=== PATIENT | male | born 2000 | race Caucasian/White ===

== ENCOUNTER 2023-03-03 11:05 | Emergency (ER) | payer MEDICAID ==
[~2023-03-03] VITALS: Ht 182.9 cm; Wt 80.0 kg
[2023-03-03 11:08] VITALS: BP 161/104; PULSE 114; RESP 16; TEMP 98.4; O2SAT 98
[2023-03-03] MEDS ORDERED: LORAZEPAM 2MG/ML CPJ IV NR (11:48)
[2023-03-03 12:47] LABS: BASOPHILS % 0.3 % (0.0-2.0); HEMATOCRIT. 47.6 % (42.0-52.0); HEMOGLOBIN. 16.3 g/dL (14.0-18.0); LYMPHOCYTES % 8.3 % (20.0-50.0); MEAN CORPUSCULAR HEMOGLOBIN 32.8 pg (28.0-32.0); MEAN CORPUSCULAR HGB CONC 34.3 g/dL (31.0-37.0); MEAN CORPUSCULAR VOLUME 95.6 fL (80.0-94.0); MEAN PLATELET VOLUME 9.4 fl (7.4-10.4); MONOCYTES % 5.4 % (2.0-8.0); PLATELET 250 x1000/uL (130-400); RED BLOOD CELL COUNT 4.98 mill/uL (4.7-6.1); RED CELL DISTRIBUTION WIDTH 13.2 % (11.6-14.6)
[2023-03-03 12:59] LABS: CHLORIDE 107 mEq/L (98-107); INDEX HEMOLYSI 1 (1-3); INDEX ICTERIC 1 (1-4); INDEX LIPEMIC 1 (1-3); POTASSIUM 4.2 mEq/L (3.5-5.1); SODIUM 139 mEq/L (136-145)
[2023-03-03 13:16] LABS: ACETAMINOPHEN <2 ug/mL ug/mL (10-30); ALANINE AMINOTRANSFERASE 19 IU/L (13-61); ALBUMIN 4.6 g/dL (3.4-5.0); ASPARTATE AMINOTRANSFERASE 20 IU/L (15-37); BILIRUBIN TOTAL 0.7 mg/dL (0.1-1.0); CALCIUM 9.4 mg/dL (8.5-10.1); CARBON DIOXIDE 26 mEq/L (21-32); ETHANOL BLOOD < 10 mg/dL (<10); PROTEIN TOTAL 9.5 g/dL (6.0-8.3); THYROID STIMULATING HORMONE 0.45 uIU/mL (0.36-3.74); UREA NITROGEN BLOOD 22 mg/dL (7-21)
[2023-03-03 13:22] LABS: GLUCOSE 96 mg/dL (70-105)
[2023-03-03 13:39] LABS: TROPONIN I HIGH SENSITIVITY 9 ng/L (<78)
[2023-03-03 16:23] LABS: TROPONIN I HIGH SENSITIVITY 10 ng/L (<78)
== END 2023-03-03 15:39 | disposition left against medical advice (07) ==
LOC: ER 11:05
DX: R55 Syncope and collapse (principal)
CPT/HCPCS: 36415; 80053; 80307; 80320; 80329; 84443; 84484; 85025; 99291; G0480